=== PATIENT | male | born 1970 | race Caucasian/White ===

== ENCOUNTER → 2020-06-15 | Outpatient (CLI) | payer SELFPAY ==
--- NOTE | 2020-06-15 12:48 | Diagnostic Imaging Report ---
INDICATION: Elevated triglycerides and high cholesterol. CT calcium scoring study performed. Dose reduction protocol was used There are coronary calcifications visualized in the LAD and circumflex coronary artery as well as a minimal degree in the right coronary artery. Calculated calcium score was 104.6 for the LAD, 65.2 for the circumflex coronary artery and 0.6 for the right coronary. This gives a total score of 170.3, compatible with moderate plaque burden. Source images showed no overt adenopathy mediastinum.2 lungs were not completely imaged but the visualized portions of the lung green show no abnormalities. IMPRESSION: Coronary artery calcifications are present with moderate plaque burden. Dictated by: Dictated on workstation # [id number]
== END ==
LOC: RAD FS 11:18
PROVIDERS: ATTEND Family Medicine
DX: E78.2 Mixed hyperlipidemia (principal); I25.10 Atherosclerotic heart disease of native coronary artery without angina pectoris
CPT/HCPCS: 75571